=== PATIENT | male | born 1985 | race Two or more races ===

== ENCOUNTER 2019-11-15 18:08 | Inpatient (IN) | payer MEDICAID ==
[~2019-11-15] VITALS: Ht 190.5 cm; Wt 97.6 kg
[2019-11-15] MEDS ORDERED: IV NORMAL SALINE 1000 ML BAG IV ONE (19:00)
[2019-11-15] MEDS ORDERED: PANTOPRAZOLE SODIUM IV 80 MG in IV DEXTROSE 5% 100 ML IV ONE (19:00)
[2019-11-15] MEDS ORDERED: PANTOPRAZOLE SODIUM 40 MG VIAL ONE (19:01)
[2019-11-15 19:22] LABS: BASOPHILS # (AUTO) 0.1 K/uL (0.0-8.0); BASOPHILS % (AUTO) 0.8 % (0.0-2.0); EOSINOPHILS # (AUTO) 0.1 K/uL (0.0-0.7); EOSINOPHILS % (AUTO) 1.3 % (0.0-7.0); HEMATOCRIT 45.9 % (36.7-47.1); HEMOGLOBIN 15.3 g/dL (12.5-16.3); LYMPHOCYTES # (AUTO) 2.8 K/uL (20.0-40.0); LYMPHOCYTES % (AUTO) 43.2 % (20.5-51.5); MEAN CORPUSCULAR HEMOGLOBIN 28.5 uug (23.8-33.4); MEAN CORPUSCULAR HGB CONC 33 g/dL (32.5-36.3); MEAN CORPUSCULAR VOLUME 85.4 fL (73.0-96.2); MONOCYTES # (AUTO) 0.5 K/uL (2.0-10.0); NEUTROPHILS % (AUTO) 46.7 % (38.5-71.5); PLATELET COUNT (AUTO) 235 K/uL (152-348); RED BLOOD CELL COUNT(AUTO) 5.38 MIL/uL (4.06-5.63); WHITE BLOOD COUNT (AUTO) 6.5 K/uL (3.6-10.2)
[2019-11-15 19:25] LABS: CREATININE 1.2 mg/dL (0.6-1.3); POTASSIUM 3.9 mmol/L (3.5-5.1)
[2019-11-15 19:30] LABS: BILIRUBIN,DIRECT 0.1 mg/dL (0.0-0.2); BILIRUBIN,TOTAL 0.4 mg/dL (0.2-1.0); TOTAL PROTEIN, SERUM 7.7 g/dL (6.4-8.2)
[2019-11-15 21:22] LABS: *OCCULT BLOOD STOOL NEGATIVE (NEGATIVE)
--- NOTE | 2019-11-15 21:57 | NUR ---
Pt. admitted to Tele , under care of Dr. Nicole Belongs List completed
--- NOTE | 2019-11-15 22:10 | NUR ---
Admitted 33 y/o Male under the care of Dr. Colmenares. Dx: black stools. Patient is A&Ox4, noted ambulatory w/ steady gait. No complaints of n/v. IV on RFA intact and patent. Patient on NPO. Admission protocol initiated. Oriented patient to his room and w/ the use of call light. Safety measures observed. Call light in reach
[2019-11-15] MEDS ORDERED: IV D5/ 0.9% NACL 1,000 ML IV PRN (23:15)
[2019-11-15] MEDS ORDERED: ONDANSETRON 4 MG/2 ML VIAL IV PRN (23:15)
[2019-11-15] MEDS ORDERED: MORPHINE SULFATE 2 MG/1 ML DISP.SYRIN IV PRN (23:15)
[2019-11-16 05:10] VITALS: BP 118/75
--- NOTE | 2019-11-16 06:30 | NUR ---
Patient slept well. No complaints of pain at this time. No episode of bloody stools this shift. IV on RFA intact and patent w/ IVF infusing. All needs attended. Will endorse accordingly
[2019-11-16 06:38] LABS: BILIRUBIN,TOTAL 0.4 mg/dL (0.2-1.0); CREATININE 1.2 mg/dL (0.6-1.3); MAGNESIUM 2.1 mg/dL (1.8-2.4); PHOSPHOROUS 3.1 mg/dL (2.5-4.9); POTASSIUM 4.5 mmol/L (3.5-5.1); TOTAL PROTEIN, SERUM 6.8 g/dL (6.4-8.2)
[2019-11-16 06:39] LABS: BASOPHILS % (AUTO) 0.6 % (0.0-2.0); EOSINOPHILS # (AUTO) 0.1 K/uL (0.0-0.7); EOSINOPHILS % (AUTO) 1.5 % (0.0-7.0); HEMATOCRIT 43.1 % (36.7-47.1); HEMOGLOBIN 14.1 g/dL (12.5-16.3); LYMPHOCYTES # (AUTO) 2.6 K/uL (20.0-40.0); LYMPHOCYTES % (AUTO) 46.6 % (20.5-51.5); MEAN CORPUSCULAR HEMOGLOBIN 28.8 uug (23.8-33.4); MEAN CORPUSCULAR HGB CONC 33 g/dL (32.5-36.3); MEAN CORPUSCULAR VOLUME 87.8 fL (73.0-96.2); MONOCYTES # (AUTO) 0.5 K/uL (2.0-10.0); MONOCYTES % (AUTO) 8.9 % (0.0-11.0); NEUTROPHILS # (AUTO) 2.4 K/uL (1.8-8.9); NEUTROPHILS % (AUTO) 42.4 % (38.5-71.5); PLATELET COUNT (AUTO) 200 K/uL (152-348); RED BLOOD CELL COUNT(AUTO) 4.91 MIL/uL (4.06-5.63); WHITE BLOOD COUNT (AUTO) 5.6 K/uL (3.6-10.2)
--- NOTE | 2019-11-16 07:20 | NUR ---
RECEIVED PATIENT RESTING IN BED, AWAKE AND ALERT. NO SIGNS OF ACUTE DISTRESS. PATIENT DENIES PAIN AND DISCOMFORT. BED IN LOWEST POSITION, SIDE RAILS UP X2, CALL LIGHT WITHIN REACH. WILL CONTINUE TO MONITOR.
[2019-11-16] MEDS ORDERED: PANTOPRAZOLE SODIUM 40 MG VIAL IV SCH (09:00)
[2019-11-16 11:06] VITALS: BP 104/63
[2019-11-16] MEDS ORDERED: PANT40TA2 PO (11:14)
--- NOTE | 2019-11-16 11:56 | NUR ---
DISCHARGED PATIENT TO HOME. REVIEWED D/C INSTRUCTIONS WITH PATIENT. PATIENT VERBALLY UNDERSTANDS D/C INSTRUCTIONS, PATIENT STATES HE WILL DOOR SLINGER MEDICATION FROM LOCAL PHARMACY. IV REMOVED. PATIENT GOT DRESSED, ARMBAND REMOVED. ESCORTED PATIENT DOWN TO ELEVATOR WITHOUT ANY COMPLICATIONS.
== END 2019-11-16 12:00 | disposition home or self-care (01) | DRG 253 ==
LOC: ER 18:11 → TELE3 21:52 → MEDSURG3 23:31
PROVIDERS: ADMIT Internal Medicine; ATTEND Nurse Practitioner Acute Care
DX: K92.2 Gastrointestinal hemorrhage, unspecified (principal); K21.9 Gastro-esophageal reflux disease without esophagitis; R74.0 Nonspecific elevation of levels of transaminase and lactic acid dehydrogenase [LDH]; K59.00 Constipation, unspecified
CPT/HCPCS: 36415; 71045; 83550; 83690; 83735; 84100; 85025; 85730; 86625; 86850; 86900; 86901; 87046; 93005; A4663; C9113; G0378; J7030; J7042